=== PATIENT | male | born 1965 | race Caucasian/White ===

== ENCOUNTER 2019-02-05 17:16 | Emergency (ER) | payer OTHER ==
--- NOTE | 2019-02-05 18:09 | ER ---
Nurse's Notes [facility] Name: Dejuan Ramirez Age: 53 yrs Sex: Male : 1965 Arrival Date: 02/05/2019 Time: 17:18 Bed 17 Private MD: Diagnosis: Local infection of the skin and subcutaneous tissue, unspecified Presentation: 02/05 17:20 Presenting complaint: Patient states: "I think I have parasites in my toe." Patient aj reports infection to right great toenail. 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 Transition of care: patient was not received from another setting of care. Onset of symptoms was January 24, 2019. Risk Assessment: Do you want to hurt yourself or someone else? Patient reports no desire to harm self or others. Initial Sepsis Screen: Does the patient meet any 2 criteria? No. Patient's initial sepsis screen is negative. Does the patient have a suspected source of infection? No. Patient's initial sepsis screen is negative. Care prior to arrival: None. 17:20 Method Of Arrival: Ambulatory 17:20 Acuity: FERNANDEZ 4 aj Triage Assessment: 17:21 General: Appears in no apparent distress. comfortable, Behavior is calm, cooperative, aj appropriate for age. Pain: Complains of pain in Right first toenail. Neuro: Level of Consciousness is awake, alert, obeys commands, Oriented to person, place, time, situation, Appropriate for age. Respiratory: Airway is patent Respiratory effort is even, unlabored, Respiratory pattern is regular, symmetrical. Derm: Skin is intact, is healthy with good turgor, Skin is pink, warm \\T\\ dry. normal. Historical: - Allergies: 17:21 No Known Allergies; aj - Immunization history:: Adult Immunizations up to date. - Social history:: Smoking status: Patient uses tobacco products, smokes one-half pack cigarettes per day, Patient uses alcohol, street drugs, marijuana. - Ebola Screening: : Patient negative for fever greater than or equal to 101.5 degrees Fahrenheit, and additional compatible Ebola Virus Disease symptoms Patient denies exposure to infectious person Patient denies travel to an Ebola-affected area in the 21 days before illness onset No symptoms or risks identified at this time. Screenin:45 Abuse screen: Denies threats or abuse. Denies injuries from another. Nutritional hb screening: No deficits noted. Tuberculosis screening: No symptoms or risk factors identified. Fall Risk None identified. Assessment: 17:45 General: Appears in no apparent distress. Behavior is anxious, restless. Pain: Denies hb pain. Neuro: Level of Consciousness is awake, alert, obeys commands, Oriented to person, place, time, situation. Cardiovascular: Capillary refill < 3 seconds Patient's skin is warm and dry. Respiratory: Airway is patent Respiratory effort is even, unlabored, Respiratory pattern is regular, symmetrical. GI: No signs and/or symptoms were reported involving the gastrointestinal system. : No signs and/or symptoms were reported regarding the genitourinary system. EENT: No signs and/or symptoms were reported regarding the EENT system. Derm: Skin is pink, warm \\T\\ dry. Musculoskeletal: No signs and/or symptoms reported regarding the musculoskeletal system. 18:20 Reassessment: Patient appears in no apparent distress at this time. Patient and/or hb family updated on plan of care and expected duration. Pain level reassessed. Patient is alert, oriented x 3, equal unlabored respirations, skin warm/dry/pink. Vital Signs: 17:21 BP 133 / 81; Pulse 95; Resp 16; Temp 97.8; Pulse Ox 98% on R/A; Weight 64.86 kg; Height aj 5 ft. 10 in. (177.80 cm); 17:21 Body Mass Index 20.52 (64.86 kg, 177.80 cm) aj ED Course: 17:18 Patient arrived in ED. as 17:21 Triage completed. aj 17:21 Arm band placed on left wrist. Patient placed in an exam room. aj 17:28 Leonie Rojas FNP-C is PHCP. kb 17:28 Cuate Canales MD is Attending Physician. kb 17:35 Leonie Rojas FNP-C is PHCP. kb 17:35 Cuate Canales MD is Attending Physician. kb 17:45 Patient has correct armband on for positive identification. Call light in reach. hb 17:59 Wound care: Cleaned wound to right great toe with chlorhexidine scrub and normal saline.dh3 18:14 Ana Luisa Jeff, RN is Primary Nurse. hb 18:26 No provider procedures requiring assistance completed. Patient did not have IV access hb during this emergency room visit. Administered Medications: 18:24 Drug: Doxycycline 100 mg Route: PO; hb 18:24 Follow up: Response: Medication administered at discharge. hb Outcome: 18:08 Discharge ordered by . veronika 18:26 Discharged to home ambulatory. hb 18:26 Condition: stable 18:26 Discharge instructions given to patient, Instructed on discharge instructions, follow up and referral plans. medication usage, wound care, Demonstrated understanding of instructions, follow-up care, medications, wound care, Prescriptions given X 1. 18:28 Patient left the ED. hb Signatures: Leonie Rojas, JOB TRAINER-C JOB TRAINER-Ruby Beebe, RN RN Scarlett Graff Heather, RN RN hb Herrera, Deanna dh3 Corrections: (The following items were deleted from the chart) 18:01 17:59 Wound care: Cleaned wound to left great toe with chlorhexidine scrub and normal dh3 saline dh3
--- NOTE | 2019-02-05 18:10 | EDPHYS ---
Physician Documentation [facility] Name: Dejuan Ramirez Age: 53 yrs Sex: Male : 1965 Arrival Date: 02/05/2019 Time: 17:18 Bed 17 Private MD: ED Physician Cuate Canales HPI: 02/05 18:33 This 53 yrs old Male presents to ER via Ambulatory with complaints of Toe kb Infection. 18:34 The patient presents with great toe infection/parasites. The complaints affect the left kb foot. Onset: The symptoms/episode began/occurred 2 week(s) ago. Modifying factors: The symptoms are alleviated by nothing, the symptoms are aggravated by nothing. Associated signs and symptoms: The patient has no apparent associated signs or symptoms. Severity of symptoms: At their worst the symptoms were mild, in the emergency department the symptoms are unchanged. The patient has not experienced similar symptoms in the past. The patient has not recently seen a physician. Pt reports he has parasites in the left great toe. States he soaks his toe in betadine for it and it makes them come out of the skin and nail. Pt shows videos that he took of his toes "showing the parasites coming out." No parasites noted on video or on toe. Historical: - Allergies: 17:21 No Known Allergies; aj - Immunization history:: Adult Immunizations up to date. - Social history:: Smoking status: Patient uses tobacco products, smokes one-half pack cigarettes per day, Patient uses alcohol, street drugs, marijuana. - Ebola Screening: : Patient negative for fever greater than or equal to 101.5 degrees Fahrenheit, and additional compatible Ebola Virus Disease symptoms Patient denies exposure to infectious person Patient denies travel to an Ebola-affected area in the 21 days before illness onset No symptoms or risks identified at this time. ROS: 18:32 Constitutional: Negative for fever, chills, and weight loss, Neck: Negative for injury, kb pain, and swelling, Cardiovascular: Negative for chest pain, palpitations, and edema, Respiratory: Negative for shortness of breath, cough, wheezing, and pleuritic chest pain, Abdomen/GI: Negative for abdominal pain, nausea, vomiting, diarrhea, and constipation, : Negative for injury, bleeding, discharge, and swelling, MS/Extremity: Negative for injury and deformity, Neuro: Negative for headache, weakness, numbness, tingling, and seizure. 18:32 Skin: Positive for discoloration, of the right first toe. Exam: 18:28 Constitutional: This is a well developed, well nourished patient who is awake, alert, kb and in no acute distress. Head/Face: Normocephalic, atraumatic. Neck: Trachea midline, no thyromegaly or masses palpated, and no cervical lymphadenopathy. Supple, full range of motion without nuchal rigidity, or vertebral point tenderness. No Meningismus. Chest/axilla: Normal chest wall appearance and motion. Nontender with no deformity. No lesions are appreciated. Cardiovascular: Regular rate and rhythm with a normal S1 and S2. No gallops, murmurs, or rubs. Normal PMI, no JVD. No pulse deficits. Respiratory: Lungs have equal breath sounds bilaterally, clear to auscultation and percussion. No rales, rhonchi or wheezes noted. No increased work of breathing, no retractions or nasal flaring. Abdomen/GI: Soft, non-tender, with normal bowel sounds. No distension or tympany. No guarding or rebound. No evidence of tenderness throughout. Back: No spinal tenderness. No costovertebral tenderness. Full range of motion. MS/ Extremity: Pulses equal, no cyanosis. Neurovascular intact. Full, normal range of motion. Neuro: Awake and alert, GCS 15, oriented to person, place, time, and situation. Cranial nerves II-XII grossly intact. Motor strength 5/5 in all extremities. Sensory grossly intact. Cerebellar exam normal. Normal gait. 18:28 Skin: left great toe stained due to use of betadine at home. Cracked great toe nail. Vital Signs: 17:21 BP 133 / 81; Pulse 95; Resp 16; Temp 97.8; Pulse Ox 98% on R/A; Weight 64.86 kg; Height aj 5 ft. 10 in. (177.80 cm); 17:21 Body Mass Index 20.52 (64.86 kg, 177.80 cm) aj MDM: 17:36 Patient medically screened. kb 18:28 Data reviewed: vital signs, nurses notes. Data interpreted: Pulse oximetry: on room air kb is 98 %. Interpretation: normal. Counseling: I had a detailed discussion with the patient and/or guardian regarding: the historical points, exam findings, and any diagnostic results supporting the discharge/admit diagnosis, the need for outpatient follow up, a family practitioner, to return to the emergency department if symptoms worsen or persist or if there are any questions or concerns that arise at home. Administered Medications: 18:24 Drug: Doxycycline 100 mg Route: PO; hb 18:24 Follow up: Response: Medication administered at discharge. Disposition: 02/06 09:13 Co-signature as Attending Physician, Cuate Canales MD I agree with the assessment and vicente plan of care. Disposition: 02/05/19 18:08 Discharged to Home. Impression: Local infection of the skin and subcutaneous tissue, unspecified. - Condition is Stable. - Discharge Instructions: Wound Infection, [id number]. - Prescriptions for Doxycycline Hyclate 100 mg Oral Tablet - take 1 tablet by ORAL route every 12 hours; 20 tablet. - Medication Reconciliation Form, Thank You Letter, Antibiotic Education, Prescription Opioid Use form. - Follow up: Emergency Department; When: As needed; Reason: Worsening of condition. Follow up: Private Physician; When: 2 - 3 days; Reason: Recheck today's complaints, Continuance of care, Re-evaluation by your physician. Signatures: Leonie Rojas, FAINA-C FAINA-Ruby Beebe RN RN aj Anderson, Corey, MD MD cha Baxter, Heather, OSMIN SOLORIO Corrections: (The following items were deleted from the chart) 02/05 18:28 18:08 02/05/2019 18:08 Discharged to Home. Impression: Local infection of the skin and hb subcutaneous tissue, unspecified. Condition is Stable. Forms are Medication Reconciliation Form, Thank You Letter, Antibiotic Education, Prescription Opioid Use. Follow up: Emergency Department; When: As needed; Reason: Worsening of condition. Follow up: Private Physician; When: 2 - 3 days; Reason: Recheck today's complaints, Continuance of care, Re-evaluation by your physician. kb
[2019-02-05] MEDS ORDERED: DOXYCYCLINE 100 MG CAP PO ONE (18:20)
== END 2019-02-05 18:28 | disposition home or self-care (01) ==
LOC: ER 17:16
DX: L08.9 Local infection of the skin and subcutaneous tissue, unspecified (principal); F17.210 Nicotine dependence, cigarettes, uncomplicated
CPT/HCPCS: 99283

== ENCOUNTER 2024-02-04 21:42 | Emergency (ER) | payer OTHER, SELFPAY ==
--- OUTSIDE RECORDS SUMMARY | 2024-02-04 21:45 | XMS REPORT | Continuity of Care Document ---
Author Name Unknown Address [address] [place] [address] [facility] thconnect Address [address] [place] [address] Care Team Providers Care Licensing Director Name Role Phone Pcp, Patient Does Not Have A Primary Care Physic delisa Adilene RN, Ashely Paniagua Attending Clinician Unavailable Sanju SOLORIO, Narcisa Blake Attending Clinician Unavailab DAYSI Brooks Attending Clinician Unavailable Only, Ang Db Test Attending Clinician UnavailDaysi Spicer Attending Clinician [phone] Doctor Unassigned, Lohman Attending Clinician U navailable Temi September Attending Clinician [phone] Ryan Senior MD Attending Clinician [phone] [facility] Attending Clinician Unavailable September Attending Clinician Unavailable Payers Payer Name Policy Type Policy Number Effective Date Expirati on Date Source [employer] [id number] 2020 00:00:00 Problems Condition Name Condition Details Condition Category Status Onset Date Resolution Date Last Treatment Date Treating Clinician Comments Source No known active problems No known active problems Disease [facility] Allergies, Adverse Reactions, Alerts Allergy Name Allergy Type Status Severity Reaction(s) Onset Date Inactive Date Treating Clinician Comments Source No Known Drug Allergie s DA Active U 2020-07 00:00: 00 [facility] NO KNOWN ALLERGIE S Drug Class Active [facility] Social History Social Habit Start Date Stop Date Quantity Comments Source History of tobacco use Cigarette Smoker [facility] Exposure to SARS-CoV-2 (event) Not sure [facility] Tobacco use and exposure 2021-02-14 00:00:00 2021-02-14 00:00:00 Never used [facility] Alcohol intake 2021-02-14 00:00:00 2021-02-14 00:00:00 Ex-drinker (finding) [facility] Sex Ass[birth year] At 1965 00:00:00 1965 00:00:00 [facility] Smoking Status Start Date Stop Date Source Current every day smoker 2021-02-14 00:00:00 [facility] Medications Ordered Medication Name Filled Medication Name Start Date Stop Date Current Medication? Ordering Clinician Indication Dosage Frequency Signature (SIG) Comments Components Source ivermectin 3 mg tablet 02-21 00:00: 00 02-24 04:59 :00 No [id number] 12mg Take 4 tablets by mouth daily for 2 days. [facility] clindamycin 300 mg capsule 02-14 18:13: 24 Yes 300mg Take 300 mg by mouth 4 (four) times daily. [facility] lurasidone (LATUDA) 20 mg tablet 02-14 18:13: 24 Yes 20mg Take 20 mg by mouth. [facility] amitriptyli ne 100 mg tablet 02-14 18:13: 24 Yes 100mg Take 100 mg by mouth at bedtime. [facility] albendazole 200 mg tablet 02-14 18:13: 24 Yes Take by mouth 2 (two) times daily with meals. [facility] divalproex sodium (DIVALPROEX ORAL) 02-14 18:13: 24 Yes 750mg Take 750 mg by mouth daily. [facility] clindamycin 300 mg capsule 02-14 13:13: 24 Yes 300mg Take 300 mg by mouth 4 (four) times daily. [facility] lurasidone (LATUDA) 20 mg tablet 02-14 13:13: 24 Yes 20mg Take 20 mg by mouth. [facility] amitriptyli ne 100 mg tablet 02-14 13:13: 24 Yes 100mg Take 100 mg by mouth at bedtime. [facility] albendazole 200 mg tablet 02-14 13:13: 24 Yes Take by mouth 2 (two) times daily with meals. [facility] divalproex sodium (DIVALPROEX ORAL) 02-14 13:13: 24 Yes 750mg Take 750 mg by mouth daily. [facility] diphenhydra mine-calami ne (CALAMINE MEDICATED) 1-8 % lotion 02-14 00:00: 00 Yes [id number] Apply to area(s) 2 (two) times daily. [facility] clotrimazol e 1 % topical cream 02-14 00:00: 00 05-18 05:59 :00 No [id number] Apply to area(s) 2 (two) times daily for 92 days. [facility] Vital Signs Vital Name Observation Time Observation Value Comments S ource Systolic blood pressure 2021-02-14 18:13:00 137 mm[Hg] [facility] Diastolic blood pressure 2021-02-14 18:13:00 84 mm[Hg] [facility] Heart rate 2021-02-14 18:13:00 106 /min [facility] Body weight 2021-02-14 18:06:00 59.784 kg [facility] BMI 2021-02-14 18:06:00 18.91 kg/m2 [facility] Body temperature 2021-02-14 18:06:00 36.72 Mandy [facility] Body height 2021-02-14 18:06:00 177.8 cm [facility] Procedures Procedure Date / Time Performed Performing Clinicia n Source ASSIGNMENT OF BENEFITS 2021-03-12 17:44:35 Docto r Unassigned, Lohman [facility] Encounters Start Date/Time End Date/Time Encounter Type Admission Type Attending Clinicians Care Facility Care Department Encounter ID Source 2021-06-23 12:00:00 Inpatient [facility] [id number] [facility] 2021-06-23 12:00:00 2021-06-23 12:00:00 Emergency [facility] [id number] [facility] 2021-03-21 00:00:00 2021-03-21 00:00:00 Outpatient [facility] [id number] [facility] 2021-03-15 00:00:00 2021-03-15 00:00:00 Telephone Ashely Head [facility] 1.114 [id number] [facility] 2021-03-14 00:00:00 2021-03-14 00:00:00 Letter (Out) Narcisa Bills [facility] 1.114 [id number] [facility] 2021-03-12 15:15:00 2021-03-12 15:15:00 Outpatient Serena B[facility]GER [facility] [id number] [facility] 2021-03-12 12:44:58 2021-03-12 12:54:58 Laboratory Only Only, Ang Db Test Mahesh [facility]cardomadison [facility] 1.114 [id number] [id number] [facility] 2021-03-12 00:00:00 2021-03-12 00:00:00 Orders Only Doctor Unassigned, Lohman [facility] 1.114 [id number] [id number] [facility] 2021-03-03 00:00:00 2021-03-03 00:00:00 Telephone Marylin Membreno [facility] 1.114 [id number] [facility] 2021-02-21 00:00:00 2021-02-21 00:00:00 Telephone Ryan Senior [facility] 1..114 [id number] [id number] [facility] 2021-02-14 14:48:55 2021-02-14 15:23:49 Station Mechanic Visit [facility] 1..114 [id number] [id number] [facility] 2021-02-14 12:59:55 2021-02-14 13:59:55 Office Visit [facility] 1..114 [id number] [facility] 2021-02-14 13:30:00 2021-02-14 13:30:00 Outpatient [facility] [id number] [facility] Results Test Description Test Time Test Comments Results Result Co mments Source UA, Urinalysis Rflx Cult/[id number] 13:20:00* Test Item Value Reference Range Interpretation Comme nts Color,Urine (test code = UCOL) Yellow Yellow Clarity,Urine (test code = UCLAR) Clear Clear PH,Urine (test code = UPH.XX) 6.0 5.5-8.5 Specific [place],Urine (test code = USG) 1.025 1.005-1.030 N Blood,Urine (test code = UBLD) Negative cells/uL Negative Protein,Urine (test code = UPRO) Negative mg/dL Negative Glucose,Urine (UA) (test code = UGLU) Negative mg/dL Negative Ketones,Urine (test code = UKET) Negative mg/dL Negative Nitrate,Urine (test code = UNIT) Negative Negative Bilirubin,Urine (test code = UBIL) Negative mg/dL Negative Urobilinogen,Urine (test code = UURO) 0.2 mg/dL Negative Leukocyte Esterase,Urine (test code = ULEU) Negative cells/uL Negative Complete Blood Count Auto [id number] 12:52:00* Test Item Value Reference Range Interpretation Comme nts White Blood Count (test code = WBCT) 7.6 x10 3/uL 4.4-10.5 N Red Blood Count (test code = RBC) 4.86 x10 6/uL 4.10-5.70 N Hemoglobin (test code = HGBT) 14.7 g/dL 13.4-17.4 N Hematocrit (test code = HCTT) 45.2 % 38.7-52.0 N Mean Corpuscular Volume (claribel t code = MCV) 93.00 fL 80.00-100.00 N Mean Corpuscular Hemoglobin (test code = MCH) 30.2 pg 27.0-32.5 N Mean Corpuscular HGB Conc (test code = MCHC) 32.50 g/dL 32.00-37.50 N RDW Coefficient of Variation (test code = RDWCV) 13.6 % 11.5-14.5 N Platelet Count (test code = PLTT) 378.0 x10 3/uL 140.0-440.0 N Mean Platelet Volume (test code = MPV) 9.1 fL Immature Granulocytes % (Aut o) (test code = IMMGRAN%) 0.1 % 0.0-5.0 N Neutrophils % (Auto) (test code = NE%) 52.0 % 36.0-70.0 N Lymphocytes % (Auto) (test code = LY%) 30.9 % 12.0-44.0 N Monocytes % (Auto) (test cod e = MO%) 8.0 % 0.0-11.0 N Eosinophils % (Auto) (test code = EO%) 7.9 % 0.0-7.0 H Basophils % (Auto) (test cod e = BA%) 1.1 % 0.0-2.0 N Immature Granulocytes # (Aut o) (test code = IMMGRAN#) 0.01 x10 3/uL Neutrophils # (Auto) (test code = NE#) 4.0 x10 3/uL 1.6-7.4 N Lymphocytes # (Auto) (test code = LY#) 2.35 x10 3/uL 0.50-4.60 N Monocytes # (Auto) (test cod e = MO#) 0.61 x10 3/uL 0.00-1.20 N Eosinophils # (Auto) (test code = EO#) 0.60 x10 3/uL 0.00-0.74 N Basophils # (Auto) (test cod e = BA#) 0.08 x10 3/uL 0.00-0.21 N nRBC Abs (test code = NRBCA) 0 nRBC Pct (test code = NRBCP) 0 % Comprehensive Metabolic [id number] 12:52:00* Test Item Value Reference Range Interpretation Comme nts SODIUM (test code = NA) 140.0 mmol/L 136.0-145.0 N Potassium,K (test code = K) 4.2 mmol/L 3.0-5.1 N Chloride (test code = CL) 106 mmol/L 98-107 N Carbon Dioxide (test code = CO2) 27 mmol/L 20-31 N Anion Gap (test code = GAP) 7 mmol/L 5-15 N Blood Urea Nitrogen (test co de = BUN) 10 mg/dL 9-23 N Creatinine (test code = CREATT) 0.67 mg/dL 0.55-1.02 N Creatinine Clr Calc Pharmacy (test code = CRCLPHA) 107.94 mL/min Estimated GFR ( Amer[place] ca (test code = EGFRAA) > 60 mL/min/1.73m2 Estimated GFR (Non Afr Ameri ca (test code = EGFRNAA) > 60 mL/min/1.73m2 BUN/Creatinine Ratio (test c ode = BCRATIO) 15 ratio 10-20 N Glucose (test code = GLU) 85 mg/dL 74-106 N Osmolality,Calculated (test code = OSMOC) 287.5 Calcium (test code = CA) 9.4 mg/dL 8.3-10.6 N Bilirubin,Total (test code = BILIT) 0.2 mg/dL 0.2-1.1 N Aspartate Amino Transferase (test code = AST) 31 U/L 0-34 N Alanine Aminotransferase (te st code = ALT) 38 U/L 10-49 N Total Protein (test code = TP) 7.3 g/dL 5.7-8.2 N Albumin Level (test code = ALB) 4.1 g/dL 3.2-4.8 N Globulin (test code = GLOB) 3.2 mg/dL 2.3-3.5 N Albumin/Globulin Ratio (test code = AGRATIO) 1.3 ratio 0.8-2.0 N Alkaline Phosphatase (test c ode = ALP) 76 U/L 46-116 N Ethanol [id number] 12:52:00* Test Item Value Reference Range Interpretation Comme nts Ethanol (test code = ETOH) 56 mg/dL The pharmacologi rebeca response to blood alcohol levels mayvary from individual to individual. The fatal concentrationhas been reported to be >400mg/dL.
--- NOTE | 2024-02-04 22:31 | ER ---
Nurse's Notes [facility] Name: Dejuan Ramirez Age: 58 yrs Sex: Male : 1965 Arrival Date: 02/04/2024 Time: 21:42 Bed 5 Private MD: Diagnosis: Cellulitis of left upper limb Presentation: 02/03 22:10 Chief complaint: Patient states: ABSCESS TO LEFT FOREARM STARTED 4 HRS AGO. STATES HE jj7 HAD AN ABSCESS IN THE SAME SPOT 1 MONTH AGO THAT WAS TREATED WITH MEDS. Coronavirus screen: At this time, the client does not indicate any symptoms associated with coronavirus-19. Ebola Screen: No symptoms or risks identified at this time. Initial Sepsis Screen: Does the patient meet any 2 criteria? No. Patient's initial sepsis screen is negative. Does the patient have a suspected source of infection? No. Patient's initial sepsis screen is negative. Risk Assessment: Do you want to hurt yourself or someone else? Patient reports no desire to harm self or others. Onset of symptoms was February 04, 2024. 22:10 Method Of Arrival: Ambulatory [facility] 22:10 Acuity: FERNANDEZ 4 [facility] 22:10 Note TOOK ADVIL 2 HRS AGO. jj7 Triage Assessment: 22:13 General: Appears in no apparent distress. comfortable, Behavior is calm, cooperative, jj7 appropriate for age. Pain: Complains of pain in palmar aspect of left forearm Pain currently is 10 out of 10 on a pain scale. Derm: Skin is red. Historical: - Allergies: 22:13 Codeine; jj7 - PMHx: 22:13 MENTAL HEALTH; jj7 - PSHx: 22:13 None; jj7 - Immunization history:: Adult Immunizations up to date, Client reports receiving the 2nd dose of the Covid vaccine, Flu vaccine is up to date. - Infectious Disease History:: Denies. - Social history:: Smoking status: Patient reports the use of cigarette tobacco products, cigars, 1 PACK A WEEK, Patient uses alcohol, weekly. street drugs, marijuana, Patient/guardian denies using. - Family history:: not pertinent. Screenin:16 [facility] ED Fall Risk Assessment (Adult) History of falling in the last 3 months, jj7 including since admission No falls in past 3 months (0 pts) Confusion or Disorientation No (0 pts) Intoxicated or Sedated No (0 pts) Impaired Gait No (0 pts) Mobility Assist Device Used No (0 pt) Altered Elimination No (0 pt) Score/Fall Risk Level 0 - 2 = Low Risk Oriented to surroundings, Maintained a safe environment, Educated pt \T\ family on fall prevention, incl call for assistance when getting out of bed. Abuse screen: Denies threats or abuse. Nutritional screening: No deficits noted. Tuberculosis screening: No symptoms or risk factors identified. Assessment: 22:15 General: Appears in no apparent distress. Behavior is calm, cooperative. Pain: rg5 Complains of pain in left arm Pain currently is 8 out of 10 on a pain scale. Quality of pain is described as aching, Pain began 4 hours ago. 22:15 Neuro: Level of Consciousness is awake, alert, obeys commands, Oriented to person, rg5 place, time. Cardiovascular: Denies chest pain, Capillary refill < 3 seconds Patient's skin is warm and dry. Respiratory: Airway is patent Trachea midline Respiratory effort is even, unlabored, Respiratory pattern is regular, symmetrical. GI: Abdomen is flat, non-distended. : No signs and/or symptoms were reported regarding the genitourinary system. EENT: No deficits noted. Derm: Abscess located on left elbow has no drainage, is red, is raised, Reports pain that is 8 out of 10 on a pain scale. Musculoskeletal: Range of motion: intact in all extremities. Vital Signs: 22:10 BP 139 / 81; Pulse 77; Resp 19; Temp 98.7; Pulse Ox 98% ; Weight 65.77 kg; Height 5 ft. jj7 10 in. ; Pain 10/10; 22:48 BP 131 / 80; Pulse 75; Resp 16 S; Temp 98.7(O); Pulse Ox 97% on R/A; jw7 22:10 Body Mass Index 20.81 (65.77 kg, 177.8 cm) jj7 22:10 Pain Scale: Adult jj7 Angel Coma Score: 22:15 Eye Response: spontaneous(4). Motor Response: obeys commands(6). Verbal Response: rg5 oriented(5). Total: 15. ED Course: 22:08 Patient arrived in ED. gm2 22:13 Angus Mendoza MD is Attending Physician. rt 22:13 Triage completed. jj7 22:13 Arm band placed on right wrist. jj7 22:15 Call light in reach. Side rails up X 1. Adult w/ patient. Provided Education on: post rg5 er care done. 22:15 No provider procedures requiring assistance completed. Patient did not have IV access rg5 during this emergency room visit. 22:26 Bishop Mejia, RN is Primary Nurse. rg5 Administered Medications: 22:40 Drug: Ketorolac IM 30 mg IM once Route: IM; Site: left deltoid; rg5 22:50 Follow up: Response: Pain is decreased rg5 22:40 Drug: Doxycycline PO 100 mg PO once Route: PO; rg5 22:50 Follow up: Response: No adverse reaction rg5 Medication: 22:16 VIS not applicable for this client. jj7 Outcome: 22:31 Discharge ordered by MD. rt 22:45 Discharged to home ambulatory, rg5 22:45 Condition: good rg5 22:45 Discharge instructions given to patient, family, Instructed on discharge instructions, Demonstrated understanding of instructions, medications, Prescriptions given X 1, 22:51 Patient left the ED. rg5 Signatures: Hoda Ya RN RN jw7 Birgit Burrell RN RN jj7 Angus Mendoza MD MD rt [facility] Bishop Mejia, RN RN rg5
--- NOTE | 2024-02-04 22:31 | EDPHYS ---
Physician Documentation [facility] Name: Dejuan Ramirez Age: 58 yrs Sex: Male : 1965 Arrival Date: 02/04/2024 Time: 21:42 Bed 5 Private MD: ED Physician Angus Mendoza HPI: 02/03 22:44 This 58 yrs old Male presents to ER via Ambulatory with complaints of Arm Pain, Abscess.rt 22:44 Patient presents to the ED with reported infection to the left forearm. Patient had a rt similar infection, resolved with Bactrim about 1 month ago. States that it recurred in the same spot. Patient denies fever, chills. Denies other acute complaints, symptoms are mild in severity, no other aggravating or alleviating factors.. Historical: - Allergies: 22:13 Codeine; jj7 - PMHx: 22:13 MENTAL HEALTH; jj7 - PSHx: 22:13 None; jj7 - Immunization history:: Adult Immunizations up to date, Client reports receiving the 2nd dose of the Covid vaccine, Flu vaccine is up to date. - Infectious Disease History:: Denies. - Social history:: Smoking status: Patient reports the use of cigarette tobacco products, cigars, 1 PACK A WEEK, Patient uses alcohol, weekly. street drugs, marijuana, Patient/guardian denies using. - Family history:: not pertinent. ROS: 22:44 Constitutional: Negative for fever, chills, and weight loss, Cardiovascular: Negative rt for chest pain, palpitations, and edema, Respiratory: Negative for shortness of breath, cough, wheezing, and pleuritic chest pain, Abdomen/GI: Negative for abdominal pain, nausea, vomiting, diarrhea, and constipation, Neuro: Negative for headache, weakness, numbness, tingling, and seizure, 22:44 Skin: Positive for cellulitis, Negative for laceration(s), Exam: 22:44 Constitutional: This is a well developed, well nourished patient who is awake, alert, rt and in no acute distress. Head/Face: Normocephalic, atraumatic. Chest/axilla: Normal chest wall appearance and motion. Nontender with no deformity. No lesions are appreciated. Cardiovascular: Regular rate and rhythm with a normal S1 and S2. No gallops, murmurs, or rubs. Normal PMI, no JVD. No pulse deficits. Respiratory: Lungs have equal breath sounds bilaterally, clear to auscultation and percussion. No rales, rhonchi or wheezes noted. No increased work of breathing, no retractions or nasal flaring. Abdomen/GI: Soft, non-tender, with normal bowel sounds. No distension or tympany. No guarding or rebound. No evidence of tenderness throughout. MS/ Extremity: Pulses equal, no cyanosis. Neurovascular intact. Full, normal range of motion. Neuro: Awake and alert, GCS 15, oriented to person, place, time, and situation. Cranial nerves II-XII grossly intact. Motor strength 5/5 in all extremities. Sensory grossly intact. Cerebellar exam normal. Normal gait. 22:44 Skin: Med for centimeter diameter area of erythema to the left forearm, no no fluctuance, apparent drainable abscess. Vital Signs: 22:10 BP 139 / 81; Pulse 77; Resp 19; Temp 98.7; Pulse Ox 98% ; Weight 65.77 kg; Height 5 ft. jj7 10 in. ; Pain 10/10; 22:48 BP 131 / 80; Pulse 75; Resp 16 S; Temp 98.7(O); Pulse Ox 97% on R/A; jw7 22:10 Body Mass Index 20.81 (65.77 kg, 177.8 cm) [facility] 22:10 Pain Scale: Adult jj7 Sears Coma Score: 22:15 Eye Response: spontaneous(4). Motor Response: obeys commands(6). Verbal Response: rg5 oriented(5). Total: 15. MDM: 22:26 Patient medically screened. rt 22:44 Differential diagnosis: Cellulitis. Data reviewed: vital signs, nurses notes. Test rt considered but Not performed: Other Details Stable vital signs, only minor cellulitis, labs not indicated. Counseling: I had a detailed discussion with the patient and/or guardian regarding the historical points, exam findings, and any diagnostic results supporting the discharge/admit diagnosis, the need for outpatient follow up, to return to the emergency department if symptoms worsen or persist or if there are any questions or concerns that arise at home. Administered Medications: 22:40 Drug: Ketorolac IM 30 mg IM once Route: IM; Site: left deltoid; rg5 22:50 Follow up: Response: Pain is decreased rg5 22:40 Drug: Doxycycline PO 100 mg PO once Route: PO; rg5 22:50 Follow up: Response: No adverse reaction rg5 Disposition Summary: 02/04/24 22:31 Discharge Ordered Notes: Location: Home rt Problem: new rt Symptoms: are unchanged rt Condition: Stable rt Diagnosis - Cellulitis of left upper limb rt Followup: rt - With: Private Physician - When: 2 - 3 days - Reason: Discharge Instructions: - Discharge Summary Sheet rt - Cellulitis, Adult rt Forms: - Medication Reconciliation Form rt - Antibiotic Education rt - Prescription Opioid Use rt - Patient Portal Instructions rt - Leadership Thank You Letter rt Prescriptions: - Doxycycline Hyclate 100 mg Oral Tablet - take 1 tablet ORAL route every 12 hours; 20 tablet; Refills: 0, Product rt Selection Permitted Signatures: Birgit Burrell RN RN jj7 Angus Mendoza MD MD rt Bishop Mejia RN RN rg5
[2024-02-04] MEDS ORDERED: KETOROLAC 30 MG/ML INJ ONE (22:35)
[2024-02-04] MEDS ORDERED: DOXYCYCLINE 100 MG CAP PO ONE (22:35)
[2024-02-05 23:48] VITALS: TEMP 98.7
[2024-02-05 23:49] VITALS: BP 131/80; O2SAT 97
== END 2024-02-04 22:51 | disposition home or self-care (01) ==
LOC: ER 21:42
DX: L03.114 Cellulitis of left upper limb (principal)
CPT/HCPCS: 96372; 99284